=== PATIENT | male | born 1940 | race Caucasian/White ===

== ENCOUNTER 2017-02-07 08:14 | Day surgery (SDC) | payer OTHER ==
[~2017-02-07] VITALS: Ht 172.7 cm; Wt 107.4 kg
[~2017-02-07 08:14] MED LIST: 00186-0370-20 IH; AMPHOJEL SUSPENS1 ML PO; ASPIRIN 81M81 MG/TA2 PO; CEPHALEXIN500 M1 PO; COLCRYS0.6 MG PO; COMBIRESP IH; COREG 25MG25 MG/TAB PO; COZAAR100 MG PO; CRESTOR 10MG10 MG PO; DICLOFENAC SOD2.5 ML TOP; EFFIENT10 MG PO; FERRO-TIME325 MG PO; FLOMAX 0.40.4 MG/CAP PO; GLUCOSE4 G1 PO; GLUCOTROL10 MG PO; IMDUR 60MG60 MG/TAB PO; LANTUS100 U/ML SC; LIPITOR 40MG TA40 MG PO; MASON NATURAL1000 IU PO; NITRO-DUR0.4 MG/PAT TD; NITROSTAT0.6 MG SL; NORVASC 10MG10 MG PO; PLAVIX 75MG TAB75 MG PO; PROTONIX40 MG/Pack PO; RANEXA1000 MG PO; TYLENOL 325MG325 MG PO; ZYLOPRIM 100MG100 MG PO; [UNRECOGNIZED DRUG - CODE]
[2017-02-07 09:12] VITALS: BP 109/73; PULSE 65; TEMP 98.2
[2017-02-07] MEDS ORDERED: COMBIRESP IH (09:27)
[2017-02-07] MEDS ORDERED: ZYLOPRIM 100MG100 MG PO (09:28)
[2017-02-07] MEDS ORDERED: AMPHOJEL SUSPENS1 ML PO (09:29)
[2017-02-07] MEDS ORDERED: NORVASC 5MG5 MG/TAB PO (09:30)
[2017-02-07] MEDS ORDERED: 00186-0370-20 IH (09:31)
[2017-02-07] MEDS ORDERED: COREG 25MG25 MG/TAB PO (09:31)
[2017-02-07] MEDS ORDERED: BENADRYL25 M2 PO (09:32)
[2017-02-07] MEDS ORDERED: GLUCOTROL10 MG PO (09:33)
[2017-02-07] MEDS ORDERED: GLUCOTROL 5M5 MG/TAB PO (09:34)
[2017-02-07] MEDS ORDERED: HCTZ 25MG TAB25 MG PO (09:35)
[2017-02-07] MEDS ORDERED: LANTUS100 U/ML SQ (09:36)
[2017-02-07] MEDS ORDERED: ISOSORBIDE MON120 MG PO (09:37)
[2017-02-07] MEDS ORDERED: COZAAR100 MG PO (09:38)
[2017-02-07] MEDS ORDERED: NITROSTAT0.6 MG SL (09:48)
[2017-02-07] MEDS ORDERED: PROTONIX 40MG T40 MG PO (10:19)
[2017-02-07] MEDS ORDERED: VOLTAREN GEL 1%1 TU TP (10:20)
[2017-02-07] MEDS ORDERED: LIPITOR20 MG PO (10:20)
[2017-02-07] MEDS ORDERED: VITAMIN D 1001000 IU PO (10:22)
[2017-02-07] MEDS ORDERED: PLAVIX 75MG TAB75 MG PO (10:23)
[2017-02-07] MEDS ORDERED: FLOMAX 0.40.4 MG/CAP PO (10:24)
[2017-02-07] MEDS ORDERED: ASPIRIN 81M81 MG/TA2 PO (10:24)
[2017-02-07 10:30] VITALS: BP 107/63; PULSE 98; TEMP 98.5
[2017-02-07 10:45] VITALS: BP 125/90; PULSE 63
[2017-02-07 11:00] VITALS: BP 129/71; PULSE 60
== END 2017-02-07 11:15 | disposition home or self-care (01) ==
LOC: SDCO 08:14
DX: K22.2 Esophageal obstruction (principal); K44.9 Diaphragmatic hernia without obstruction or gangrene; K21.9 Gastro-esophageal reflux disease without esophagitis; I25.110 Atherosclerotic heart disease of native coronary artery with unstable angina pectoris; I25.2 Old myocardial infarction; I11.0 Hypertensive heart disease with heart failure; J44.9 Chronic obstructive pulmonary disease, unspecified; M19.90 Unspecified osteoarthritis, unspecified site; I08.0 Rheumatic disorders of both mitral and aortic valves; M10.9 Gout, unspecified; E11.9 Type 2 diabetes mellitus without complications; I25.5 Ischemic cardiomyopathy; Z79.01 Long term (current) use of anticoagulants; Z95.1 Presence of aortocoronary bypass graft
CPT/HCPCS: C1726; J2704; J7030